=== PATIENT | female | born 1970 ===

== ENCOUNTER 2016-03-27 00:39 | Emergency (ER) | payer MEDICAID, OTHER ==
[2016-03-27] MEDS ORDERED: MAALOX/LIDO2%VISC/SIMETHICONE 40 ML BOT ONE (01:00)
[2016-03-27 01:36] LABS: ABSOLUTE NEUTROPHIL COUNT 2.4 K/mm3 (1.8-7.7); BASO # 0.1 K/mm3 (0.0-0.2); BASO % 0.8 % (0.2-1.0); EOS # 0.2 (0.0-0.5); EOS % 3.5 % (0.9-2.9); HEMATOCRIT 35.9 % (37.0-47.0); HEMOGLOBIN 12.2 gm/l (12.0-16.0); IMM NEUT% 0.3 % (0-1); LYMPH # 3.3 (1.0-4.8); LYMPH % 50.6 % (15-45); MEAN CELL VOLUME 86.1 fl (81.0-99.0); MEAN CORPUSCULAR HEMOGLOBIN 29.3 pg (27.0-31.0); MEAN PLATELET VOLUME 10.5 fl (7.4-10.4); MONO # 0.5 (0.0-0.8); MONO % 8.1 % (4-12); NEUT % 36.7 % (43-75); PLATELET COUNT 241 K/mm3 (130-400); RED CELL DISTRIBUTION WIDTH 12.3 % (11.5-14.5)
[2016-03-27] MEDS ORDERED: FAMOTIDINE 10 MG/ML 2ML VIAL ONE (02:06)
[2016-03-27] MEDS ORDERED: ACETAMINOPHEN 500 MG TABLET ONE (02:10)
[2016-03-27 02:13] LABS: ALB/GLOB RATIO 1.3 (>1.0); ALBUMIN 3.8 gm/dL (3.5-5.7); CALCIUM 8.8 mg/dL (8.6-10.3)
--- NOTE | 2016-03-27 08:32 | RAD ---
03/27/2016 8:25 AM CHEST - 2 VIEWS History: Transient chest pain. Comparison: 02/21/2014 Findings: Two views of the chest are obtained. The lungs are clear with out effusion or pneumothorax. The cardiomediastinal silhouette is unremarkable.. The osseous structures are intact.. IMPRESSION: No acute intrathoracic process.
== END 2016-03-27 03:23 | disposition home or self-care (01) ==
LOC: ED 00:39
DX: K21.9 Gastro-esophageal reflux disease without esophagitis (principal); I10 Essential (primary) hypertension; G51.0 Bell's palsy